=== PATIENT | female | born 1945 | race Caucasian/White ===

== ENCOUNTER 2018-05-11 12:18 | Emergency (ER) | payer MEDICARE, OTHER ==
--- NOTE | 2018-05-11 12:28 | EKG ---
[address] [id number] Test Date: 2018-05-11 Test Time: 12:24:16 Pat Name: ESTHER BUSH Department: Room: Gender: [employer]: : 1945 Requested By: KOSTA HOPKINS Order Number: [id number] Reading MD: Juliano Carlin MD Measurements Intervals [place] Rate: 83 P: 21 MS: 132 QRS: 42 QRSD: 82 T: 42 QT: 380 QTc: 452 Interpretive Statements SINUS RHYTHM Electronically Signed On 05-12-2018 10:55:14 CDT by Juliano Carlin MD
[2018-05-11 12:36] LABS: BASO # 0.1 x10^3/uL (0.0-0.2); BASO % 2 % (0-3); EOS # 0.2 x10^3/uL (0.0-0.7); EOS % 3 % (0-3); HEMATOCRIT 45.4 % (36.0-47.0); HEMOGLOBIN 15.2 g/dL (12.0-15.5); LYMPH # 1.7 x10^3/uL (1.0-4.8); LYMPH % 24 % (24-48); MEAN CORPUSCULAR HEMOGLOBIN 30 pg (25-35); MEAN CORPUSCULAR HGB CONC 33 g/dL (31-37); MEAN CORPUSCULAR VOLUME 91 fL (79-100); MONO # 0.5 x10^3/uL (0.0-1.1); MONO % 7 % (0-9); NEUT # 4.5 x10^3uL (1.8-7.7); NEUT % 64 % (31-73); PLATELET COUNT 266 x10^3/uL (140-400); RED BLOOD COUNT 5.01 x10^6/uL (3.50-5.40); RED CELL DISTRIBUTION WIDTH 14.1 % (11.5-14.5)
--- NOTE | 2018-05-11 12:37 | PHYS DOC ---
Past History Past Medical History: Fibromyalgia, Hypotension Past Surgical History: Knee Replacement, Tonsillectomy Alcohol Use: Rarely Drug Use: None Adult General Chief Complaint Chief Complaint: CHEST PAIN HPI HPI 72-year-old female presents with chest pain. The patient states that she was riding in a car earlier today when she started to get the right-sided chest pain that quickly went across her chest to the left. This pain increased to a severe central chest pressure. The patient has never had a feeling like this before. She told her she needed to go to the hospital. It took about 10 minutes to get here. As she was getting out of the car, the pain began to subside. It is currently a 5 out of 10. It does have some radiation to her jaw. She does not believe she was short of breath. She denies diaphoresis. Patient has no cardiac history. Her last stress test was over a year ago. She denies fever or chills. She denies nausea or vomiting. Review of Systems Review of Systems Constitutional: Denies fever or chills [] Eyes: Denies change in visual acuity, redness, or eye pain [] HENT: Denies nasal congestion or sore throat [] Respiratory: Denies cough or shortness of breath [] Cardiovascular: No additional information not addressed in HPI [] GI: Denies abdominal pain, nausea, vomiting, bloody stools or diarrhea [] : Denies dysuria or hematuria [] Musculoskeletal: Denies back pain or joint pain [] Integument: Denies rash or skin lesions [] Neurologic: Denies headache, focal weakness or sensory changes [] Endocrine: Denies polyuria or polydipsia [] All other systems were reviewed and found to be within normal limits, except as documented in this note. Current Medications Current Medications Current Medications Medications (Trade) Dose Ordered Sig/[facility] Start Time Stop Time Status Last Admin Dose Admin Aspirin (Children'S Aspirin) 324 mg 1X ONCE 05/11/18 12:45 05/11/18 12:46 05/11/18 12:33 324 MG Allergies Allergies Allergies Coded Allergies Type Severity Reaction Last Updated Verified No Known Drug Allergies 05/11/18 No Physical Exam Physical Exam Constitutional: Well developed, obese, well nourished, no acute distress, non- toxic appearance. [] HENT: Normocephalic, atraumatic, bilateral external ears normal, oropharynx moist, no oral exudates, nose normal. [] Eyes: PERRLA, EOMI, conjunctiva normal, no discharge. [] Neck: Normal range of motion, no tenderness, supple, no stridor. [] Cardiovascular:Heart rate regular rhythm, no murmur [] Lungs & Thorax: Bilateral breath sounds clear to auscultation [] Abdomen: Bowel sounds normal, soft, no tenderness, no masses, no pulsatile masses. [] Skin: Warm, dry, no erythema, no rash. [] Back: No tenderness, no CVA tenderness. [] Extremities: No tenderness, no cyanosis, no clubbing, ROM intact, no edema. [] Neurologic: Alert and oriented X 3, normal motor function, normal sensory function, no focal deficits noted. [] Psychologic: Affect normal, judgement normal, mood normal. [] Current Patient Data Vital Signs Vital Signs Date Time Temp Pulse Resp B/P (MAP) Pulse Ox O2 Delivery O2 Flow Rate FiO2 05/11/18 12:20 98.4 86 20 98 Room Air EKG EKG Sinus rhythm, rate 83, normal axis, no ST elevations or depressions.[] Radiology/Procedures Radiology/Procedures [] Impressions: CHEST AP ONLY Clinical Indication: chest pain x 1 day, no hx of heart or lung disease Comparison: None. Findings: Portable frontal view of the chest was obtained. The cardiomediastinal silhouette is normal. Lungs are clear. There is no pneumothorax. No pleural effusion is appreciated. No acute bone abnormality. Intramedullary brant and screws are partially seen involving the proximal left femur. IMPRESSION: No acute cardiopulmonary process. Electronically signed by: Sabra Beyer MD (05/11/2018 1:10 PM) [facility] DICTATED AND SIGNED BY: SABRA BEYER MD DATE: 05/11/18 1310 CC: KOSTA HOPKINS DO; NON,STAFF Course & Med Decision Making Course & Med Decision Making Pertinent Labs and Imaging studies reviewed. (See chart for details) Patient was given 324 of aspirin in the ED. Her EKG was unremarkable. Her labs are unremarkable. Her troponin is negative. Her chest x-ray is unremarkable. Her HEART score is 3. Discussed admission for further observation versus going home and the patient would like to go home. She is from out of town and was planning to go back to [place]. She will instead go back to her family's local home for at least one more night. If her pain return she will come back to the hospital to be admitted. She is stable for discharge at this time. [] Dragon Disclaimer Dragon Disclaimer This electronic medical record was generated, in whole or in part, using a voice recognition dictation system. Departure Departure: Impression: Primary Impression: Chest pain Disposition: HOME, SELF-CARE Condition: STABLE Referrals: NON,STAFF (PCP) Patient Instructions: Chest Pain (Nonspecific), [id number] Problem Qualifiers Primary Impression: Chest pain Chest pain type: other chest pain Qualified Codes: R07.89 - Other chest pain KOSTA HOPKINS DO May 11, 2018 12:37
[2018-05-11] MEDS ORDERED: ASPIRIN 81 MG TAB.CHEW PO ONE (12:45)
[2018-05-11 12:50] LABS: ALBUMIN 3.3 g/dL (3.4-5.0); ALBUMIN/GLOBULIN RATIO 0.8 (1.0-1.7); CALCIUM 9.3 mg/dL (8.5-10.1); CREATININE 1.2 mg/dL (0.6-1.0); GFR 44.4; POTASSIUM 3.8 mmol/L (3.5-5.1); TOTAL BILIRUBIN 0.5 mg/dL (0.2-1.0); TOTAL PROTEIN 7.3 g/dL (6.4-8.2)
--- NOTE | 2018-05-11 13:13 | RAD ---
CHEST AP ONLY Clinical Indication: chest pain x 1 day, no hx of heart or lung disease Comparison: None. Findings: Portable frontal view of the chest was obtained. The cardiomediastinal silhouette is normal. Lungs are clear. There is no pneumothorax. No pleural effusion is appreciated. No acute bone abnormality. Intramedullary brant and screws are partially seen involving the proximal left femur. IMPRESSION: No acute cardiopulmonary process. Electronically signed by: Baldev Nelson MD (05/11/2018 1:10 PM) [facility]
[2018-05-11 14:25] VITALS: BP 142/83
== END 2018-05-11 14:55 | disposition home or self-care (01) ==
LOC: ER 12:18
DX: R07.89 Other chest pain (principal); M79.7 Fibromyalgia
CPT/HCPCS: 36415; 71045; 80053; 84484; 85025; 93005; 99284